=== PATIENT | female | born 1970 | race Asian ===

== ENCOUNTER 2025-01-10 20:55 | Emergency (ER) | payer MEDICAID, OTHER ==
[~2025-01-10] VITALS: Ht 160 cm; Wt 57.6 kg
[~2025-01-10 20:55] MED LIST: ABIL5; CARI-518; CITA20TA19; DIPH25CA83; GLIP5TAB3; HYDR-3512; IBUPROFEN; LORA-249; METF-414; NAPROXEN; OMEP20CA14; TRAM-350; TRAZ-252
[2025-01-10 21:20] VITALS: O2SAT 98
[2025-01-11] MEDS ORDERED: LIDO-53 TP (00:08)
[2025-01-11] MEDS: LIDOCAINE 5% PATCH TOP SCH (00:13)
[2025-01-11] MEDS: ACETAMINOPHEN 500MG TABLET PO ONE (00:14)
[2025-01-11] MEDS ORDERED: IBUP-2028 MT (00:56)
[2025-01-11 01:15] VITALS: BP 125/54; PULSE 67; RESP 18; TEMP 36.6; O2SAT 100
== END 2025-01-11 01:57 | disposition home or self-care (01) ==
LOC: ER 20:55
DX: M25.511 Pain in right shoulder (principal); E11.9 Type 2 diabetes mellitus without complications; F32.A Depression, unspecified; I10 Essential (primary) hypertension
CPT/HCPCS: 73030; 99283